=== PATIENT | male | born 1960 | race Caucasian/White ===

== ENCOUNTER 2023-11-15 10:09 | Outpatient (CLI) | payer OTHER, SELFPAY ==
--- NOTE | ~2023-11-15 | MR_ITS ---
Procedure: MR lumbar spine wo con Ordering provider: Summer Tubbs, [employer] History: . Lumbago . Comparison: None. Technique: MRI lumbar spine without contrast. FINDINGS: SPINAL CORD: Normal. Cord ends at the level of T12-L1. VERTEBRAL BODIES: Normal height and alignment. No compression fracture. Bright signal is seen in the left side of the superior endplate of L4 suggestive of endplate changes possibility of bone contusion . DISK SPACES: Degenerative disc disease at the level of L2-L3, L3-L4, L4-L5 and L5-S1... Endplate alarcon ges are seen at the level of L5-S1. Indicate changes are seen in the superior endplate of L4. Diffuse disc bulge at the level of L2-L3. No significant intervertebral foraminal narrowing with no r oot compression. L3-L4: Mild spinal canal stenosis. Diffuse disc bulge with bilateral narrowing of the foramina and th e root compression on the left side. Thickening of the ligamenta flava. Bilateral facet joint disease . L4-L5: Mild spinal canal stenosis. Mild diffuse disc bulge. Thickening of the ligamenta flava. Interv ertebral foraminal narrowing more on the right side with root compression. Bilateral facet joint dise ase. L5-S1: Bilateral facet joint disease. PARASPINOUS SOFT TISSUES: Normal. IMPRESSION: No compression fracture. Multilevel spinal canal stenosis, intervertebral foraminal narrowing and with compression. Reviewed, dictated and finalized at location A. IMPRESSION: No compression fracture. Multilevel spinal canal stenosis, intervertebral foraminal narrowing and with c ompression.
--- NOTE | ~2023-11-15 | MR_ITS ---
EXAMINATION: MR hip LT wo con DATE: 11/15/2023 11:18 INDICATION: Left hip pain. TECHNIQUE: Magnetic resonance imaging (MRI) of the left hip was performed without intravenous contras t. COMPARISON: None FINDINGS: Bones/cartilage: There is no fracture. There is moderate right hip osteoarthritis and severe left hip osteoarthritis. There is prominent subchondral edema-like marrow signal intensity in left acetabulum and left femoral head and neck. There is lumbar levocurvature and severe spondylosis. Labrum: Small [id number] images demonstrate a tear of left acetabular labrum with 8 mm paralabral cyst. Fluid: There is a moderate-sized left hip joint effusion. There is mild bilateral trochanter bursitis. Soft tissues: The prostate is moderately enlarged. There is a left inguinal hernia containing fat. There is mild te ndinopathy of the hamstring origins. The iliopsoas tendons are normal. There is mild tendinopathy of the gluteus minimus tendons and right gluteus medius tendon. IMPRESSION: 1. Severe left hip osteoarthritis and moderate right hip osteoarthritis. 2. Moderate-sized left hip joint effusion. 3. Left inguinal hernia containing fat. Reviewed, dictated and finalized at location A.
== END 2023-11-15 10:10 | disposition home or self-care (01) ==
LOC: MICIMG 10:09
PROVIDERS: Visit Provider Nurse Practitioner Family
DX: M54.50 Low back pain, unspecified (principal); M16.0 Bilateral primary osteoarthritis of hip; M25.452 Effusion, left hip; K40.90 Unilateral inguinal hernia, without obstruction or gangrene, not specified as recurrent
CPT/HCPCS: 72148; 73721